=== PATIENT | female | born 1980 | race African-American/Black ===

== ENCOUNTER 2023-08-02 12:32 | Emergency (ER) | payer MEDICAID ==
[~2023-08-02] VITALS: Ht 175.3 cm; Wt 79.0 kg
[~2023-08-02 12:32] MED LIST: CALCIUM; PREN1TAB49; SEE MED SHEET
[2023-08-02 13:10] VITALS: BP 116/46; PULSE 57; RESP 16; TEMP 98; O2SAT 100
[2023-08-02 13:40] LABS: BASOPHILS % 0.8 % (0.0-2.0); EOSINOPHILS % 1.8 % (0.0-5.0); HEMATOCRIT. 39.4 % (36.0-48.0); HEMOGLOBIN. 12.9 g/dL (12.0-16.0); LYMPHOCYTES % 30.9 % (20.0-50.0); MEAN CORPUSCULAR HEMOGLOBIN 27.7 pg (28.0-32.0); MEAN CORPUSCULAR HGB CONC 32.7 g/dL (31.0-37.0); MEAN CORPUSCULAR VOLUME 84.5 fL (81.0-99.0); MEAN PLATELET VOLUME 9.8 fl (7.4-10.4); MONOCYTES % 5.2 % (2.0-8.0); NEUTROPHILS % 61.3 % (40.0-76.0); PLATELET 266 x1000/uL (130-400); RED BLOOD CELL COUNT 4.65 mill/uL (4.2-5.4); RED CELL DISTRIBUTION WIDTH 14.2 % (11.6-14.6)
[2023-08-02 13:50] LABS: CHLORIDE 106 mEq/L (98-107); POTASSIUM 4.2 mEq/L (3.5-5.1); SODIUM 140 mEq/L (136-145)
[2023-08-02 13:51] LABS: CARBON DIOXIDE 29 mEq/L (21-32)
[2023-08-02 13:52] LABS: CALCIUM 9.7 mg/dL (8.7-10.4)
[2023-08-02 13:56] LABS: CREATININE 0.9 mg/dL (0.6-1.0); GLUCOSE 97 mg/dL (70-105)
[2023-08-02 13:57] LABS: UREA NITROGEN BLOOD 7 mg/dL (9-23)
[2023-08-02 14:01] LABS: TROPONIN I HIGH SENSITIVITY < 4 ng/L (3.0-34)
== END 2023-08-02 18:06 | disposition left against medical advice (07) ==
LOC: ER 12:32
DX: R07.9 Chest pain, unspecified (principal); Z53.21 Procedure and treatment not carried out due to patient leaving prior to being seen by health care provider
CPT/HCPCS: 36415; 80048; 81025; 84484; 85025; 93005

== ENCOUNTER 2025-02-09 21:02 | Emergency (ER) | payer MEDICAID ==
[~2025-02-09] VITALS: Ht 175.3 cm; Wt 77.8 kg
[2025-02-09 21:12] VITALS: TEMP 36.8; O2SAT 99
[2025-02-09] MEDS: SODIUM CHLORIDE 0.9% 1,000 ML IV ONE (21:30)
[2025-02-09 22:18] LABS: BASOPHILS % 1.0 % (0.0-2.0); EOSINOPHILS % 1.7 % (0.0-5.0); HEMATOCRIT. 37.9 % (36.0-48.0); HEMOGLOBIN. 12.2 g/dL (12.0-16.0); LYMPHOCYTES % 32.4 % (20.0-50.0); MEAN PLATELET VOLUME 10.0 fl (7.4-10.4); MONOCYTES % 6.2 % (2.0-8.0); NEUTROPHILS % 58.7 % (40.0-76.0); PLATELET 232 x1000/uL (130-400); RED BLOOD CELL COUNT 4.59 mill/uL (4.2-5.4); RED CELL DISTRIBUTION WIDTH 14.7 % (11.6-14.6)
[2025-02-09 22:31] LABS: HCG SCREEN NEGATIVE
[2025-02-09 22:40] LABS: UREA NITROGEN BLOOD 6 mg/dL (9-23)
[2025-02-09 22:41] LABS: TROPONIN I HIGH SENSITIVITY < 4 ng/L (3.0-34)
[2025-02-09 22:42] LABS: CREATININE 0.9 mg/dL (0.6-1.0)
[2025-02-09 22:44] LABS: ASPARTATE AMINOTRANSFERASE 12 IU/L (<34); BILIRUBIN DIRECT 0.1 mg/dL (<=3.0)
[2025-02-09 22:45] LABS: BILIRUBIN TOTAL 0.6 mg/dL (0.1-1.0); PROTEIN TOTAL 6.7 g/dL (6.0-8.3)
[2025-02-09 23:52] VITALS: BP 105/69; PULSE 64; RESP 18; O2SAT 98
== END 2025-02-09 23:55 | disposition home or self-care (01) ==
LOC: ER 21:02 → CMPBEDREQ 02-10 08:04
DX: R07.2 Precordial pain (principal); R06.02 Shortness of breath; R42 Dizziness and giddiness; Z79.899 Other long term (current) drug therapy; Z88.1 Allergy status to other antibiotic agents; Z91.040 Latex allergy status
CPT/HCPCS: 99285; 71045; 80076; 80048; 84703; 83880; 83690; 83735; 85025; 85379; 84484; 36415; 93005; J7030